=== PATIENT | female | born 1945 | race Caucasian/White ===

== ENCOUNTER 2017-03-02 00:51 | Inpatient (IN) | payer OTHER ==
[2017-03-02] VITALS (11 sets, daily range): BP systolic 112–220; BP diastolic 82–100
[~2017-03-02] VITALS: Ht 165.1 cm; Wt 78.3 kg
--- NOTE | 2017-03-02 01:30 | NUR ---
RECEIVED 71 YO FEMALE, WALK-IN. PT C/O RLQ ABD PAIN "SHARP" W/ NAUSEA X 2 DAYS, ACTIVE BOWEL SOUNDS AUSC IN 4 QUADS, PT'S ABD SOFT UPON PALPATION. PT AAOX4, IN NAD, NO SOB, RR EVEN AND UNLABORED, MSE DONE BY DR. GUERRA
[2017-03-02 02:31] LABS: CALCIUM 9.9 mg/dL (8.5-10.1); CARBON DIOXIDE 29.3 mmol/L (21-32); CHLORIDE SERUM 104 mmol/L (98-107); CREATININE SERUM 0.8 mg/dL (0.6-1.0); GLUCOSE SERUM 98 mg/dL (74-106); PLATELET COUNT 286 x10^3mcL (130-400); POTASSIUM SERUM 4.3 mmol/L (3.5-5.1); RED CELL DISTRIBUTION WIDTH 12.6 % (11.5-14.5); SODIUM SERUM 139 mmol/L (136-145)
[2017-03-02 02:35] LABS: ALBUMIN 3.7 g/dL (3.4-5.0); ALKALINE PHOSPHATASE 89 U/L (46-116); ALT/SGPT 17 U/L (14-59); AMYLASE 30 U/L (25-115); AST/SGOT 19 U/L (15-37); BILIRUBIN TOTAL 0.45 mg/dL (0.20-1.00); LIPASE 106 IU/L (73-393); TOTAL PROTEIN, SERUM 7.1 g/dL (6.4-8.2)
[2017-03-02] MEDS ORDERED: ATENOLOL25 MG PO (04:19)
[2017-03-02] MEDS ORDERED: CARISOPRODOL350 MG PO (04:20)
[2017-03-02 04:54] LABS: T3 TOTAL 1.44 ng/mL
[2017-03-02 04:59] LABS: CHOLESTEROL/HDL RATIO 3.5; FREE T4 1.22 ng/dL (0.76-1.46); FREE THYROXINE INDEX 3.2 ug/dL (1.4-4.5); T4(THYROXINE) 10.2 ug/dL (4.7-13.3)
[2017-03-02 06:36] LABS: microscopic required? NO
--- NOTE | 2017-03-02 07:15 | NUR ---
RECEIVED PT FROM NIGHT NURSE. PT AWAKE AND ACTING APPROPRIATELY. VS STABLE. RESP EVEN AND UNLABORED. NAD NOTED.
--- NOTE | 2017-03-02 07:50 | NUR ---
REPORT GIVEN TO OK SPARKS IN MST FOR CONTINUITY OF CARE
[2017-03-02 07:51] LABS: UA SPECIFIC GRAVITY <=1.005 (1.005-1.035); urine erythrocyte NEGATIVE (NEGATIVE)
--- NOTE | 2017-03-02 07:55 | NUR ---
RECEIVED PT FROM ER VIA GURNEY. ABLE TO AMBULATE FROM DOOR TO ROOM, UP TO BATHROOM VOIDED. THEN TO BED. MADE COMFORTABLE. ORIENT TO ROOM AND CALL LIGHT SYSTEM. PT ALERT X3. TEMP 98.2. TELE #36 PLACED SHOWS SINUS ARRHYTHMIA RATE 59. PT DENIES CHEST DISCOMFORT. RESP 18 EVEN. BREATH SOUNDS CLEAR. NO COUGH OR SOB. PULSE OX 98% RA. ABD SOFT, BOWEL TONES PRESENT. REPORTS "NORMAL BM THIS AM. I STARTED TO HAVE PAIN IN MY STOMACH 2 WEEKS AGO ON THE RIGHT SIDE . WAS FINE BEFORE THAT. MY PCP DID NOT KNOW WHERE TO START TO INVESTIGATE MY PAIN. IT GOT WORSE LAST NIGHT SO I CAME TO ER." PAIN AT THIS TIME 05/07. RECEIVED MORPHINE SULFATE 2MG IVP IN ER AT 0711. REPORTS "I AM OK WHEN I LAY STILL." INSTRUCTED WITH NEED TO KEEP NPO AT THIS TIME. IV PATENT RAC. SIDE RAILS UP X2. CALL LIGHT IN REACH. DTR QUINCY PRESENT.
--- NOTE | 2017-03-02 08:15 | NUR ---
IVF NORMAL SALINE 100CC/HR STARTED AT THIS TIME. ORAL CARE ITEMS SUPPLIED PT C/O DRY MOUTH. PT PREFERS BP TO BE TAKEN WITH MANNUAL CUFF DUE TO AUTOMATIC CUFF "GOES TO HIGH AND IT HURTS MY ARM." MANNUAL CUFF PROVIDED.
--- NOTE | 2017-03-02 08:40 | NUR ---
DR DÍAZ AND DR THOMSON IN TO SEE PT. REVIEWED PT KNOWLEDGE OF CURRENT HEALTH ISSUES AND CAT SCAN RESULTS. PT REPORTS "I KNOW I HAVE A MASS ON MY LIVER." PLAN FOR DR GONZALEZ IN XRAY TO REVIEW CT AND FOR POSSIBLE BX TODAY. TO HAVE DR Imelda RIVERA COME TO EVALUATE PT. PT VERBALIZED UNDERSTANDING.
--- NOTE | 2017-03-02 10:00 | NUR ---
DR RIVERA HERE.
--- NOTE | 2017-03-02 12:25 | NUR ---
RBS=89MG SPOT CHECK.
--- NOTE | 2017-03-02 12:30 | NUR ---
PT C/O "HEADACHE 07/07, ABD DISCOMFORT OK WHEN I LAY STILL, WHEN I MOVE 05/07." MED WITH MORPHINE SULFATE 2MG IVP AND ZOFRAN 4MG IVP ORDERED. COOL PACK TO NECK FOR HEADACHE. CALL FROM RADIOLOGY. WILL GO DOWN FOR LIVER BX AT 1330. PT UPDATED. REMAINS NPO.
--- NOTE | 2017-03-02 13:00 | NUR ---
PT REPORTS "HEADACHE A LITTLE BETTER 05/07." FAMILY AT BEDSIDE. DR CRUZ IN TO SPEAK WITH PT.
--- NOTE | 2017-03-02 14:00 | NUR ---
DR ELIZABETH HERE.
--- NOTE | 2017-03-02 14:10 | NUR ---
HR=58. ZS=123/92. PULSE OX 95%. UPDATED DR PACKER WITH PT STATUS AND HIGH BLOOD PRESSURE. NO NEW ORDERS AT THIS TIME. PT IV CONVERTED TO SALINE LOCK. TAKEN VIA WHEELCHAIR TO XRAY AT THIS TIME.
--- NOTE | 2017-03-02 15:30 | NUR ---
RECEIVED PT BACK FROM XRAY. UP FROM GURNEY TO BATHROOM, VOIDED. BACK TO BED. BANDAIDS TO RIGHT UPPER ABD INTACT. POSITIONED TO RIGHT SIDE. HOB ELEVATED 20 DEGREES. PT ANXIOUS AND C/O PAIN TO BX SITE 07/07. IVF RESUMED 100CC/HR. HR=64, RESP 18. KF=395/100./ PAGE TO DR PACKER. FAMILY AT BEDSIDE.
--- NOTE | 2017-03-02 15:45 | NUR ---
DR PACKER AT BEDSIDE. UPDATED WITH PT STATUS AND BP. BP NOW 158/90. HR=64. RESP 18. PULSE OX 96% RA. NO RESP DISTRESS. DIET ORDERED SOFT, NO MEATS. JELLO AND PUDDING GIVEN REQUESTED. FAMILY AT BEDSIDE. MED WITH MORPHINE SULFATE 2MG IVP ORDERED. CALL LIGHT IN REACH.
--- NOTE | 2017-03-02 16:00 | NUR ---
PT REPORTS "FEELING BETTER PAIN /10." EATING PUDDING AND JELLO. CALL FROM [employer] TO DISCUSS MEALS. RC=717/98. HR=63. RESP 18, PULSE OX 94% RA.
--- NOTE | 2017-03-02 16:15 | NUR ---
HR=64. JN=165/98. HR=64. PULSE OX 94%. BANDAIDS REMAIN CDI. NO FURTHER C/O NAUSEA. FAMILY AT BEDSIDE.
--- NOTE | 2017-03-02 16:52 | NUR ---
PT C/O NV, MEDICATED ORDERED
--- NOTE | 2017-03-02 17:15 | NUR ---
QU=560/92. HR=60. PULSE OX 95% RA. BANDAIDS CDI TO BX SITE. FAMILY AT BEDSIDE.
--- NOTE | 2017-03-02 17:15 | NUR ---
CONTINUES TO C/O NAUSEA AFTER TAKING ZOFRAN. PAGE TO DR PACKER.
--- NOTE | 2017-03-02 17:40 | NUR ---
EMESIS 50CC YELLOWISH EMESIS. PERSONAL CARE PROVIDED. FAMILY AT BEDSIDE. PAGE TO DR PACKER.
--- NOTE | 2017-03-02 18:17 | NUR ---
DR RIVERA IN TO SPEAK WITH PT AND FAMILY. DISCUSSED PLAN OF CARE. PT AGREEABLE TO HAVE EGD TOMORROW MORNING. DIET FOR TONIGHT REGULAR/SOFT FOODS, NO MEATS, PUDDING AND JELLO. NPO AFTER MIDNIGHT. PT CONTINUES TO C/O NAUSEA WITH EMESIS 100CC YELLOWISH EMESIS. MED WITH PHENERGAN 12.5MG IVP ORDERED. CALL LIGHT IN REACH. WILL CONTINUE TO MONITOR.
--- NOTE | 2017-03-02 19:19 | NUR ---
PT SLEEPING, NO DISTRESS. REPORT WITH GERSON SPARKS MANAGER SPEECH AT BEDSIDE. CALL LIGHT IN REACH.
--- NOTE | 2017-03-02 20:40 | NUR ---
Awake and verbally responsive. No resp.distress noted on room air. Denies pain at this time. Appears depressed. Ambulating in the room. Will cont.to monitor. Call light within reach.
--- NOTE | 2017-03-03 04:20 | NUR ---
Afebrile. No SOB noted. Kept NPO for EGD today. Consent signed for procedure. Medicated as ordered for c/o abd'l.pain. Morphine 2mg IV given, will cont.to monitor effectiveness. No n/v noted. Ambulated.
[2017-03-03 05:25] VITALS: BP 140/70
[2017-03-03 06:05] LABS: BASOPHIL % 0.2 % (0-2); PLATELET COUNT 249 x10^3mcL (130-400); RED CELL DISTRIBUTION WIDTH 13.5 % (11.5-14.5)
[2017-03-03 06:24] LABS: CALCIUM 9.5 mg/dL (8.5-10.1); CARBON DIOXIDE 28.2 mmol/L (21-32); CHLORIDE SERUM 106 mmol/L (98-107); CREATININE SERUM 0.8 mg/dL (0.6-1.0); GLUCOSE SERUM 87 mg/dL (74-106); POTASSIUM SERUM 3.6 mmol/L (3.5-5.1); SODIUM SERUM 139 mmol/L (136-145)
--- NOTE | 2017-03-03 07:25 | NUR ---
RECEIVED THE PATIENT AWAKE/ALERT AND ORIENTED TO PERSON, PLACE AND TIME. DENIED SHORTNESS OF BREATH, NAUSEA/VOMITING OR PAIN AT THIS TIME. IVF NS VIA H/L TO RAC. TELE # 36 READS SINUS RHYTHMS WITH EPISODES OF SINUS BRADYCARDIA. CALL LIGHT WITHIN REACH. SIDE RAILS UP X2. CONTINUE TO MONITOR.
--- NOTE | 2017-03-03 07:30 | NUR ---
PATIENT WAS TAKEN TO THE GI LAB FOR EGD.
--- NOTE | 2017-03-03 08:48 | NUR ---
RECEIVED THE PATIENT BACK TO THE ROOM S/P EGD. THE PATIENT SLIGHTLY DROWSY BUT AROUSABLE BY VERBAL STIMULUS. VS CHECKED (SEE VS DOC). CALL LIGHT WITHIN REACH. SIDE RAILS UP X2. THE PATIENT WAS RESTING IN BED COMFORTABLY. CONTINUE TO MONITOR.
[2017-03-03 08:50] VITALS: BP 122/61
--- NOTE | 2017-03-03 09:10 | NUR ---
DR. DÍAZ AND THE TEAM WERE MAKING ROUND TO SEE THE PATIENT. THE CARE PLAN WAS DISCUSSED WITH THE PATIENT, AND THE PATIENT AGREED WITH THE PLAN.
--- NOTE | 2017-03-03 11:27 | NUR ---
THE OLD IV SITE AT [facility] LEAKING; THE H/L WAS REMOVED WITH CATH INTACT. NEW IV SITE WAS INSERTED TO THE RIGHT HAND WITH # 20G. THE PATIENT TOLERATED WITH THE PROCEDURE.
[2017-03-03 14:43] VITALS: BP 136/72
--- NOTE | 2017-03-03 18:00 | NUR ---
THE PATIENT REFUSED TO HAVE VS CHECKED AT THIS TIME.
--- NOTE | 2017-03-03 18:54 | NUR ---
THE PATIENT HAS BEEN TAKING SUPREP THE 1ST BOTTLE FOR BOWEL PREP. THE PATIENT AMBULATED AND USED BRP DURING THE SHIFT.
--- NOTE | 2017-03-03 19:15 | NUR ---
SEEN WALKING BACK FROM THE BATHROOM, AWAKE, ALERT, ORIENTED X4. DENIES PAIN AT THIS TIME. BREATHING EASY AND EVEN ON ROOM AIR. REDNESS AND WARM TO TOUCH TO RIGHT ANTECUBITAL AREA(OLD IV SITE). ON ROCEPHIN IV DAILY. IV SITE S/L TO RT HAND INTACT AND PATENT. PLAN OF CARE DISCUSSED. CALL LIGHT PLACED WITHIN REACH. SIDERAILS UP X2.
[2017-03-03 20:30] VITALS: BP 179/79
--- NOTE | 2017-03-03 20:32 | NUR ---
Awake and verbally responsive. No resp.distress noted. Denies pain. Bowel prep ongoing. No bm yet. Had episode of n/v. For colonoscopy in am. Will cont.to monitor.
[2017-03-03 21:30] VITALS: BP 150/90
--- NOTE | 2017-03-04 02:19 | NUR ---
Having watery stools noted. Ambulating. Denies pain.
--- NOTE | 2017-03-04 04:11 | NUR ---
Afebrile. No significant change in condition noted. Watery yellow stools noted without solid particles. Resting in bed. In no apparent distress.
[2017-03-04 05:33] LABS: BASOPHIL % 0.3 % (0-2); PLATELET COUNT 250 x10^3mcL (130-400); RED CELL DISTRIBUTION WIDTH 13.7 % (11.5-14.5)
[2017-03-04 05:46] LABS: CALCIUM 9.5 mg/dL (8.5-10.1); CARBON DIOXIDE 26.1 mmol/L (21-32); CHLORIDE SERUM 107 mmol/L (98-107); CREATININE SERUM 0.8 mg/dL (0.6-1.0); GLUCOSE SERUM 93 mg/dL (74-106); POTASSIUM SERUM 3.6 mmol/L (3.5-5.1); SODIUM SERUM 141 mmol/L (136-145)
[2017-03-04 06:08] VITALS: BP 140/70
--- NOTE | 2017-03-04 07:25 | NUR ---
PATIENT AOX4, AMBULATING WITH STEADY GAIT FROM RESTROOM. DENIES HEADACHE/DIZZINESS. TELE 36, DENIES CP. LUNGS CTA, NO RESP DISTRESS NOTED ON RA. PEIRPHERLA PULSES PALPABLE, DENIES NUMBNESS/TIGNLING. BOWEL SOUNS ACTIVE, LAST BM THIS MORNING WATERY, BOWEL PREPPING FOR COLONOSCOPY TODAY, STATES PAIN TO ABD TOLERABLE AT THIS TIME NOT REQUESTING FOR PAIN MED YET, ABD SOFT, DENIES N/V. SKIN INTACT WITH RT ARM REDNESS/SWELLING FROM OLD IV SITE. CURRENT IV ACCESS TO RH 20G RUNNING NS INFUSING WELL SITE WNL. CALL LIGHT WITHIN REACH.
--- NOTE | 2017-03-04 08:06 | NUR ---
REPORT GIVEN TO GI LAB NURSE.
[2017-03-04 08:15] LABS: CA 125 7.8 U/mL (0.0-38.1)
--- NOTE | 2017-03-04 08:20 | NUR ---
REPORT GIVEN TO GI LAB FOR COLONOSCOPY SCHEDULED AT 1130.
[2017-03-04 09:35] VITALS: BP 162/91
--- NOTE | 2017-03-04 10:48 | NUR ---
PATIENT GOING DOWN FOR COLONOSCOPY, HEPLOCKED.
--- NOTE | 2017-03-04 13:17 | NUR ---
PATIENT BACK FROM COLONOSCOPY. REQUESTING TO CHANGE OFF OF GOWN AND INTO OWN PJ'S, ASSISTED. IV RESUMED TO INFUSE ROCEPHIN. BED LINENS NEW AND ASSISTED PATIENT BACK IN BED WITH SCD'S IN PLACE. CALL LIGHT WITHIN REACH. VISITOR AT BEDSIDE.
[2017-03-04 14:19] VITALS: BP 179/80
[2017-03-04 18:30] VITALS: BP 155/92
--- NOTE | 2017-03-04 18:45 | NUR ---
NO DISTRESS NOTED AT THIS TIME. MANUAL BP TAKEN AND CHARTED. OLD IV SITE TO RT ARM WITH PERSISTENT SWELLING, REDNESS GONE DOWN STILL PINK. PAIN TOLERABLE AT THIS TIME, TORADOL GIVEN EARLIER EFFECTIVE. NO OTHER SIGNFICANT CHANGE IN CONDITION. WILL CONT TO MONITOR AND ENDORSE TO NOC RN.
--- NOTE | 2017-03-04 19:15 | NUR ---
SEEN WALKING BACK FROM THE BATHROOM, AWAKE, ALERT, ORIENTED X4. DENIES DISCOMFORT AT THIS TIME. BREATHING EASY ON ROOM AIR. ABD SOFT AND ROUND. STS HAD GOOD DINNER AFTER NOT ABLE TO EAT FOR SO MANY DAYS. REDNESS TO OLD IV SITE RIGHT ANTECUBITAL, [place]. ON ROCEPHIN IV DAILY. S/L TO RIGHT HAND INTACT AND PATENT. PLAN OF CARE DISCUSSED. WILL BE MONITORED.
--- NOTE | 2017-03-04 21:30 | NUR ---
STS FEELING NAUSEA, SALTY CRACKERS AND ZUP PROVIDED.
[2017-03-04 22:00] VITALS: BP 150/80
--- NOTE | 2017-03-04 22:30 | NUR ---
STS FEELING BETTER AFTER CRACKERS. DENIES MS CONTIN PO SCHEDULED AT THIS TIME.
--- NOTE | 2017-03-05 00:51 | NUR ---
TORADOL IVP GIVEN PER PATIENT'S REQUESTED FOR RIGHT ARM REDNESS AND THROBBING PAIN. WILL CONTINUE TO MONITOR.
[2017-03-05 06:17] LABS: BASOPHIL % 0.5 % (0-2); PLATELET COUNT 236 x10^3mcL (130-400); RED CELL DISTRIBUTION WIDTH 13.3 % (11.5-14.5)
[2017-03-05 06:47] LABS: CALCIUM 9.4 mg/dL (8.5-10.1); CARBON DIOXIDE 27.7 mmol/L (21-32); CHLORIDE SERUM 106 mmol/L (98-107); GLUCOSE SERUM 91 mg/dL (74-106); POTASSIUM SERUM 3.7 mmol/L (3.5-5.1); SODIUM SERUM 142 mmol/L (136-145)
--- NOTE | 2017-03-05 06:48 | NUR ---
NOTED REDNESS TO RIGHT ARM SUBSIDED, STS FEELING BETTER. ASKED FOR TORADOL, TORADOL IV GIVEN. NO ADVERSE REACTION NOTED. IV ACCESS INTACT AND PATENT.
--- NOTE | 2017-03-05 07:45 | NUR ---
PATIENT AOX4, DENIES GARCIA. TELE [address], DENIES CP. NO RESP DISTRESS ON RA. PERIPHERAL PULSES PALPABLE. MINOR PINK/SWELLING TO RT ARM, SUBSIDING. DENIES NAUSEA AT THIS TIME, BOWEL SOUNDS ACTIVE. IV ACCESS TO SL, PATENT AND SITE WNL. V/S TAKEN AND CHARTED. PATIENT REQUESTING TO REMOVE IV, REMINDED SHE HAS IV ABX DUE THIS AM, COMPLIANT WITH RECIEVING IV ABX PRIOR TO REMOVAL. CALL LIGHT WITHIN REACH.
[2017-03-05 07:49] VITALS: BP 148/91
--- NOTE | 2017-03-05 09:30 | NUR ---
DR HENRY AND TEAM AT BEDSIDE. PATIENT OKAY TO GO HOME TODAY AND FOLLOW UP WITH ONCOLOGIST. PATIENT COOPERATIVE WITH PLAN OF CARE.
[2017-03-05 09:35] VITALS: BP 148/91
--- NOTE | 2017-03-05 10:24 | NUR ---
PATIENT REQUESTING TO SHOWER, PER DR Nadeem COLMENARES OKAY TO SHOWER AND DC IV. IV TO DC'D CATH INTACT. TELE DC'D. PREPARED PATIENT FOR SHOWER, ASSISTANCE OFFERED, DAUGHTER AT BEDSIDE WILL ASSIST PATIENT.
[2017-03-05] MEDS ORDERED: ZOF4 PO (10:41)
[2017-03-05] MEDS ORDERED: COL100 PO (10:42)
[2017-03-05] MEDS ORDERED: NORCO1 TA2 PO (10:42)
== END 2017-03-05 11:52 | disposition home or self-care (01) | DRG 435 ==
LOC: ED 00:51 → DU 04:08
PROVIDERS: Family Medicine; Internal Medicine Gastroenterology; Specialist; ADMIT Family Medicine
PROC: 0FB13ZX Excision of Right Lobe Liver, Percutaneous Approach, Diagnostic (ICD-10-PCS; 2017-03-02)
PROC: 0DB68ZX Excision of Stomach, Via Natural or Artificial Opening Endoscopic, Diagnostic (ICD-10-PCS; principal; 2017-03-03 10:00)
PROC: 0DJD8ZZ Inspection of Lower Intestinal Tract, Via Natural or Artificial Opening Endoscopic (ICD-10-PCS; 2017-03-04)
DX: C78.7 Secondary malignant neoplasm of liver and intrahepatic bile duct (principal); N17.0 Acute kidney failure with tubular necrosis; C80.1 Malignant (primary) neoplasm, unspecified; E78.5 Hyperlipidemia, unspecified; I10 Essential (primary) hypertension; E02 Subclinical iodine-deficiency hypothyroidism; D72.828 Other elevated white blood cell count; K57.30 Diverticulosis of large intestine without perforation or abscess without bleeding; K64.8 Other hemorrhoids; Z68.28 Body mass index [BMI] 28.0-28.9, adult
CPT/HCPCS: 43235; 45378; 49180; 82962; 83880; 84439; 88344; J0696; J1200; J1610; J1885; J2001; J2250; J2270; J2310; J2405; J2550; J3010; J3490; J7030; Q0092; Q0163; Q9967

== ENCOUNTER 2017-05-24 03:43 | Inpatient (IN) | payer OTHER ==
[~2017-05-24] VITALS: Ht 165.1 cm; Wt 74.8 kg
[~2017-05-24 03:43] MED LIST: ATENOLOL25 MG PO; CARISOPRODOL350 MG PO; COL100 PO; NORCO1 TA2 PO; ZOF4 PO
[2017-05-24 05:30] LABS: BASOPHIL % 0.3 % (0-2); RED CELL DISTRIBUTION WIDTH 12.2 % (11.5-14.5)
[2017-05-24 05:32] LABS: CALCIUM 9.6 mg/dL (8.5-10.1); CARBON DIOXIDE 24.8 mmol/L (21-32); CHLORIDE SERUM 106 mmol/L (98-107); CREATININE SERUM 0.9 mg/dL (0.6-1.0); GLUCOSE SERUM 99 mg/dL (74-106); POTASSIUM SERUM 3.7 mmol/L (3.5-5.1); SODIUM SERUM 138 mmol/L (136-145)
[2017-05-24 05:35] LABS: PLATELET COUNT 75 x10^3mcL (130-400)
[2017-05-24] MEDS ORDERED: VASERETIC1 EA PO (07:41)
[2017-05-24 09:48] VITALS: BP 130/65
[2017-05-24 10:02] LABS: T3 TOTAL 1.13 ng/mL
[2017-05-24 10:15] LABS: CHOLESTEROL/HDL RATIO 3.4; MAGNESIUM 2.1 mg/dL (1.8-2.4)
[2017-05-24 10:24] VITALS: BP 130/65
[2017-05-24 10:45] LABS: FREE T4 1.31 ng/dL (0.76-1.46); FREE THYROXINE INDEX 4.1 ug/dL (1.4-4.5); T4(THYROXINE) 12.2 ug/dL (4.7-13.3)
[2017-05-24] MEDS ORDERED: XARELTO15 M1 GT (11:38)
[2017-05-24] MEDS ORDERED: CODEINE SULFATE15 MG PO (12:42)
[2017-05-24 13:21] VITALS: BP 130/65
[2017-05-24] MEDS ORDERED: ZOFRAN ODT8 MG PO (15:40)
== END 2017-05-24 19:25 | disposition home or self-care (01) | DRG 299 ==
LOC: ED 03:43 → DU 07:45
PROVIDERS: Emergency Medicine; Family Medicine; ADMIT Family Medicine
DX: I82.602 Acute embolism and thrombosis of unspecified veins of left upper extremity (principal); N17.0 Acute kidney failure with tubular necrosis; D61.810 Antineoplastic chemotherapy induced pancytopenia; C22.1 Intrahepatic bile duct carcinoma; I16.0 Hypertensive urgency; T45.1X5A Adverse effect of antineoplastic and immunosuppressive drugs, initial encounter; Y92.89 Other specified places as the place of occurrence of the external cause; Z68.27 Body mass index [BMI] 27.0-27.9, adult
CPT/HCPCS: 83880; 84439; J0360; J1642; J1644; J2270; J2405; J7030; Q0092

== ENCOUNTER 2017-05-25 10:52 | Emergency (ER) | payer OTHER ==
[~2017-05-25] VITALS: Ht 162.6 cm; Wt 74.8 kg
[~2017-05-25 10:52] MED LIST changes: +CODEINE SULFATE15 MG PO; +VASERETIC1 EA PO; +XARELTO15 M1 GT; +ZOFRAN ODT8 MG PO
[2017-05-25 12:30] VITALS: BP 145/95
== END 2017-05-25 12:29 | disposition home or self-care (01) ==
LOC: ED 10:52
DX: C22.1 Intrahepatic bile duct carcinoma (principal); I82.622 Acute embolism and thrombosis of deep veins of left upper extremity; D68.318 Other hemorrhagic disorder due to intrinsic circulating anticoagulants, antibodies, or inhibitors; I10 Essential (primary) hypertension; Z88.0 Allergy status to penicillin; Z88.2 Allergy status to sulfonamides; Z88.1 Allergy status to other antibiotic agents

== ENCOUNTER 2017-06-08 23:59 | Emergency (ER) | payer OTHER | END 2017-06-09 00:53 | disposition home or self-care (01) | LOC: ED 23:59 | DX: T85.868A Thrombosis due to other internal prosthetic devices, implants and grafts, initial encounter (principal); I82.C22 Chronic embolism and thrombosis of left internal jugular vein; I82.A12 Acute embolism and thrombosis of left axillary vein; I82.622 Acute embolism and thrombosis of deep veins of left upper extremity; I10 Essential (primary) hypertension; Z85.05 Personal history of malignant neoplasm of liver; Z88.0 Allergy status to penicillin; Z88.2 Allergy status to sulfonamides; Z88.1 Allergy status to other antibiotic agents; Z79.899 Other long term (current) drug therapy; Z79.01 Long term (current) use of anticoagulants ==

== ENCOUNTER 2017-08-09 01:28 | Emergency (ER) | payer OTHER ==
[2017-08-09 02:14] LABS: BASOPHIL % 0.2 % (0-2); PLATELET COUNT 266 x10^3mcL (130-400); RED CELL DISTRIBUTION WIDTH 13.5 % (11.5-14.5)
[2017-08-09 02:40] LABS: ALBUMIN 3.5 g/dL (3.4-5.0); ALKALINE PHOSPHATASE 112 U/L (46-116); ALT/SGPT 37 U/L (14-59); AST/SGOT 31 U/L (15-37); BILIRUBIN TOTAL 0.47 mg/dL (0.20-1.00); CALCIUM 10.1 mg/dL (8.5-10.1); CARBON DIOXIDE 25.7 mmol/L (21-32); CHLORIDE SERUM 103 mmol/L (98-107); CREATININE SERUM 0.8 mg/dL (0.6-1.0); GLUCOSE SERUM 115 mg/dL (74-106); POTASSIUM SERUM 4.1 mmol/L (3.5-5.1); SODIUM SERUM 137 mmol/L (136-145); TOTAL PROTEIN, SERUM 7.4 g/dL (6.4-8.2)
[2017-08-09 02:47] LABS: CK-MB 2.1 ng/mL (0-3.6)
[2017-08-09 04:22] LABS: AMYLASE 28 U/L (25-115); LIPASE 80 IU/L (73-393)
[2017-08-09 05:35] VITALS: BP 142/86
== END 2017-08-09 05:35 | disposition home or self-care (01) ==
LOC: ED 01:28
PROVIDERS: Emergency Medicine
DX: R10.11 Right upper quadrant pain (principal); R06.02 Shortness of breath; Z90.710 Acquired absence of both cervix and uterus; C22.8 Malignant neoplasm of liver, primary, unspecified as to type; Z79.891 Long term (current) use of opiate analgesic; Z79.899 Other long term (current) drug therapy; Z88.0 Allergy status to penicillin; Z88.1 Allergy status to other antibiotic agents; Z88.2 Allergy status to sulfonamides; I10 Essential (primary) hypertension
CPT/HCPCS: 83880; J2270; J2405; J7030; Q0092; Q9967